=== PATIENT | female | born 1995 | race Caucasian/White ===

== ENCOUNTER 2017-06-25 22:40 | Inpatient (IN) | payer MEDICAID ==
[~2017-06-25] VITALS: Ht 149.9 cm; Wt 60.8 kg
[2017-06-25 22:53] VITALS: BP 118/64; PULSE 65
[2017-06-25 22:55] VITALS: Ht 149.9 cm; Wt 60.8 kg
[2017-06-25] MEDS ORDERED: PREN1TAB79 PO (22:56)
[2017-06-25] MEDS ORDERED: IRON1TAB78 PO (22:56)
[2017-06-26] MEDS ORDERED: LACTATED RINGER'S 1,000 ML IV SCH (01:26)
[2017-06-26] MEDS ORDERED: CARBOPROST 250 MCG INJ IM PRN ×2 (01:30→05:00)
[2017-06-26] MEDS ORDERED: IBUPROFEN 600 MG TAB PO PRN ×2 (01:30→03:30)
[2017-06-26] MEDS ORDERED: LIDOCAINE 1% (MPF) 30 ML INJ INJ PRN (01:30)
[2017-06-26] MEDS ORDERED: MISOPROSTOL 200 MCG TAB PR PRN ×2 (01:30→05:00)
[2017-06-26] MEDS ORDERED: OXYTOCIN 30 UNITS/LR 500 ML IV PRN ×2 (01:30→05:00)
[2017-06-26] MEDS ORDERED: METHYLERGONOVINE 0.2 MG INJ IM PRN ×2 (01:30→05:00)
[2017-06-26] MEDS ORDERED: BUTORPHANOL 2 MG INJ IV PRN (01:30)
[2017-06-26] MEDS ORDERED: OXYCODONE/ACETAMINOPHEN (5/325) TAB PO PRN (03:30)
[2017-06-26] MEDS ORDERED: OXYTOCIN 30 UNITS/LR 500 ML IV SCH ×3 (03:30→04:57)
[2017-06-26 04:08] LABS: ABNORMAL IP MESSAGE 1; BASOPHILS % 0.2 % (0.0-2.0); HEMOGLOBIN 12.3 g/dl (12.0-16.0); LYMPHOCYTES # 1.1 10^3/ul (0.8-2.9); LYMPHOCYTES % 8.4 % (15.0-51.0); MEAN CORPUSCULAR HGB CONC 34.2 g/dl (32.0-37.0); MEAN PLATELET VOLUME 13.5 fl (7.4-10.4); MONOCYTE # 0.4 10^3/ul (0.3-0.9); MONOCYTES % 2.8 % (0.0-11.0); NEUTROPHIL # 11.3 10^3/ul (1.6-7.5); NEUTROPHILS % 88.1 % (39.0-77.0); PLATELET COUNT 191 10^3/UL (140-415); RED BLOOD COUNT 4.39 10^6/ul (4.20-5.40); WHITE BLOOD COUNT 12.8 10^3/ul (4.8-10.8)
[2017-06-26 04:10] LABS: INR 0.88; PT RATIO 0.9
[2017-06-26 04:11] LABS: PARTIAL THROMBOPLASTIN TIME 28.9 Sec (25.0-35.0); POSITIVE DIFF @See below
[2017-06-26] MEDS ORDERED: LACTATED RINGER'S 1,000 ML IV* SCH (04:57)
[2017-06-26] MEDS ORDERED: HYDROCODONE/APAP (5/325) TAB PO PRN (05:00)
[2017-06-26] MEDS ORDERED: BENZOCAINE 20% 56 ML SPRAY TOP PRN (05:00)
[2017-06-26] MEDS ORDERED: WITCH HAZEL/GLYCERIN PAD PR PRN (05:00)
[2017-06-26] MEDS ORDERED: LANOLIN 7 GM TUBE TOP PRN (05:00)
--- NOTE | 2017-06-26 05:01 | LDN ---
Date/Time of Note Date/Time of Note DATE: 06/26/17 TIME: 04:59 Delivery Summary of a viable baby boy weighing 3295 grams or 7# 4 oz, 19' long, and with Apgars of 9/9. Weeks of Gestation 39w 5d Placenta Delivered: Spontaneously Meconium: none Episiotomy: No Perineal laceration: 2 Laceration repair: Second degree perineal laceration repaired with 2-0 chromic. Anesthesia type: Local Estimated blood loss: 200 Sponge & Needle done & correct: Yes All needle counts correct: Yes Any foreign bodies felt in the: No (vagina) Problems: Delivery Information Sex Sex: male Apgars 1 Minute: 9 5 Minute: 9 Suctioning Nose & mouth suctioned at andrew: Yes Delee suction performed: No Umbilical Cord Umbilical cord with: 3 Vessels Cord presentations: no nuchal cord Cord Blood was obtained: Yes Mother & Baby Disposition Disposition Mom & Baby to Maternity; Good: Yes Baby to NICU: No SHANDRA PEREYRA MD Jun 26, 2017 05:01
--- NOTE | 2017-06-26 05:04 | HP ---
Date/Time of Note Date/Time of Note DATE: 06/26/17 TIME: 05:01 OB - History Hx of Present Free Text/Dictation 22 y.o. G1 with an IUP at 39w 5d came in active labor at 4 cm and rapidly progressed to complete. Estimated Due Date: Jun 28, 2017 : 1 Para: 0 Care: Good Care Ultrasounds: Normal mid trimester US Obstetrical Complications: None Medical Complications: None Past Family/Social History * Past Medical, Surgical, Family and Obstetric Histories reviewed from chart. Blood Type: O+ Rubella: immune RPR/VDRL: Negative GBS Status: Negative HBsAG: Negative OB Admission Exam Vital Signs Vital Signs Vital Signs Date Time Temp Pulse Resp B/P Pulse Ox O2 Delivery O2 Flow Rate FiO2 06/25/17 22:53 97.9 65 118/64 Room Air Physical Exam HEENT: WNL Heart: Rhythm Normal Lungs: Clear Abdomen: WNL Extremities: Normal Reflexes: Normal Cervical Dilatation: 4cm Effacement: 100% Station: -2 Membranes: Intact Amniotic Fluid: Clear Heart Rate: 130's Accelerations: Accelerations Present Decelerations: No Decelerations Varibility: Moderate Contractions on Admission: < 5 Minutes Apart Last 72 hours Lab Results CBC & BMP 06/26/17 02:25 OB Assessment/Plan Reason for admission: active labor Plan: Expectant Management SHANDRA PEREYRA MD Jun 26, 2017 05:04
[2017-06-26] MEDS ORDERED: OXYCODONE/ACETAMINOPHEN (5/325) TAB ONE (05:08)
--- NOTE | 2017-06-26 05:12 | TRIAGE ---
OB Triage Datetime Report Generated by CPN: 06/26/2017 05:12 Datetime: 06/26/2017 04:54 Stage of : Recovery Temperature Route: Oral Pain Assessment Pain Scale: 0 Pain Presence: None/Denies Pain Type: N/A Datetime: 06/26/2017 04:09 Membrane Status: Ruptured Membranes Rupture Method: Artificial Amniotic Fluid Color: Clear Amniotic Fluid Amount: Large Amniotic Fluid Odor: Normal Datetime: 06/26/2017 04:03 Vaginal Exam Dilatation (cms): 10.0 Effacement (%): 100 Station: 0 Exam By: KAMILLE Santana RN Membrane Status: Bulging Vaginal Bleeding: Normal Show Presentation 'A': Cephalic Datetime: 06/26/2017 03:35 Vaginal Exam Dilatation (cms): 9.0 Effacement (%): 100 Station: -1 Exam By: KAMILLE Santana RN Membrane Status: Bulging Vaginal Bleeding: Normal Show Cervix, Consistency: Soft Cervix, Position: Anterior Presentation 'A': Cephalic Datetime: 06/26/2017 03:16 Vaginal Exam Dilatation (cms): 7.0 Effacement (%): 90 Station: -2 Exam By: KAMILLE Santana RN Membrane Status: Bulging Vaginal Bleeding: Normal Show Cervix, Consistency: Soft Cervix, Position: Midposition Presentation 'A': Cephalic Datetime: 06/26/2017 03:03 Quality: Moderate (Annotations: upon palpation) Resting Tone [place]: Relaxed Datetime: 06/26/2017 03:00 Labor Evaluation Frequency: 1-5 Monitor Mode: External Duration (sec)2399: 50-100 Pattern: Normal: <= 5 Contractions in 10 Minutes Heart Rate FHR Baseline Rate: 150 Monitor Mode: External US Variability: Moderate 6-25 bpm Accelerations: 10X10 Decelerations: Early; Variable Category: Category II Datetime: 06/26/2017 02:42 Quality: Moderate (Annotations: upon palpation) Datetime: 06/26/2017 02:30 Labor Evaluation Frequency: 0.5-5 Monitor Mode: External Duration (sec)2399: 50-120 Pattern: Normal: <= 5 Contractions in 10 Minutes Heart Rate FHR Baseline Rate: 150 Monitor Mode: External US Variability: Moderate 6-25 bpm Accelerations: 15X15 Decelerations: Early; Variable Category: Category II Datetime: 06/26/2017 02:21 Stage of : Labor Assessment Type: Admission Assessment Vaginal Bleeding: None Maternal Assessment Level of Consciousness: Fully Conscious DTR's/Clonus: DTRs 2+; No Clonus Headache: Denies Blurred Vision: No Respiratory Effort: Unlabored; Regular Rhythm; Equal Expansion Breath Sounds, Left: Clear and Equal Breath Sounds, Right: Clear and Equal Nausea/Vomiting: Denies RUQ Epigastric Pain: Denies Lower Extremities Edema: None Degree: None Upper Extremities Edema: None Degree: None Facial Edema: None Temperature Route: Oral Fall Risk Assessment History of Falling: (0) No Secondary Diagnosis: (0) No Ambulatory Aid: (0) Bedrest/Nurse Assist IV Therapy: (0) No Gait: (0) Normal/Bedrest/Immobile Mental Status: (0) Oriented to Own Ability Fall Score: 0 Fall Risk Score Definition: No Risk: No action required Pain Assessment Pain Scale: 6 Pain Presence: Intermittent Pain Type: Contraction Pain Location: Abdomen Datetime: 06/26/2017 02:00 Time of Arrival: 06/26/2017 02:00 EGA: 39.5 Arrived By: Stretcher; Transfer Arrived From: OB Triage Monitor Mode: External Quality: Moderate (Annotations: upon palpation) Resting Tone [place]: Relaxed Monitor Mode: External US Datetime: 06/26/2017 01:20 Vaginal Exam Dilatation (cms): 3.5 Effacement (%): 80 Station: -2 Exam By: C ARABELLA Membrane Status: Bulging Datetime: 06/26/2017 00:30 Stage of : OB Triage Labor Evaluation Frequency: 2-3 Monitor Mode: External Quality: Moderate Pattern: Normal: <= 5 Contractions in 10 Minutes Resting Tone [place]: Relaxed Heart Rate FHR Baseline Rate: 160 Monitor Mode: External US FHR Baseline Changes: No Baseline Change Variability: Moderate 6-25 bpm Accelerations: 15X15 Decelerations: None Category: Category I Datetime: 06/25/2017 23:20 Stage of : OB Triage Datetime: 06/25/2017 23:05 Vaginal Exam Dilatation (cms): 2.5 Effacement (%): 80 Station: -2 Exam By: Margy BELL Cervix, Consistency: Soft Cervix, Position: Midposition Presentation 'A': Cephalic Datetime: 06/25/2017 23:00 Stage of : OB Triage Maternal Assessment Level of Consciousness: Fully Conscious DTR's/Clonus: DTRs 2+; No Clonus Headache: Denies Blurred Vision: No Respiratory Effort: Unlabored; Regular Rhythm; Equal Expansion Breath Sounds, Left: Clear and Equal Breath Sounds, Right: Clear and Equal Nausea/Vomiting: Denies RUQ Epigastric Pain: Denies Lower Extremities Edema: None Degree: None Upper Extremities Edema: None Degree: None Facial Edema: None Temperature Route: Oral Fall Risk Assessment History of Falling: (0) No Secondary Diagnosis: (0) No Ambulatory Aid: (0) Bedrest/Nurse Assist IV Therapy: (0) No Gait: (0) Normal/Bedrest/Immobile Mental Status: (0) Oriented to Own Ability Fall Score: 0 Fall Risk Score Definition: No Risk: No action required Pain Assessment Pain Scale: 5 Pain Presence: Intermittent Pain Type: Contraction Pain Location: Abdomen; Back Datetime: 06/25/2017 22:59 Membranes Ruptured Date/Time: 06/26/2017 04:09 Datetime: 06/25/2017 22:58 Time of Arrival: 06/25/2017 22:36 EGA: 39.4 Arrived By: Wheelchair Arrived From: Home Chief Complaint: CONTRACTIONS SINCE 1500 Movement: Present Contractions: Regular Time Contractions Began: 06/25/2017 15:00 Contractions: Q3 MINUTES Rupture of Membranes: Denies Vaginal Discharge: Denies Abdominal Trauma: Not Applicable Patient Complaints: Contractions Time Provider Notified: 06/26/2017 00:25 Provider Notified: Dr Santacruz Initial Plan: EFM, CALL OB Datetime: 06/25/2017 22:48 Contraction Comments: APPLIED Comments: APPLIED
[2017-06-26] MEDS ORDERED: OXYCODONE/ACETAMINOPHEN (5/325) TAB PO ONE (05:30)
[2017-06-26 06:30] VITALS: BP 110/61; PULSE 61; RESP 20
[2017-06-26 08:45] VITALS: BP 100/51; PULSE 68; RESP 16
[2017-06-26 12:55] VITALS: BP 105/65; PULSE 73; RESP 16
[2017-06-26] MEDS: IBUPROFEN 600 MG TAB PO SCH ×2 (13:19→18:28)
[2017-06-26 15:30] VITALS: BP 114/63; PULSE 73; RESP 16
[2017-06-26 20:55] VITALS: BP 113/57; PULSE 63; RESP 18
[2017-06-27 00:15] VITALS: BP 118/58; PULSE 62; RESP 18
[2017-06-27] MEDS: IBUPROFEN 600 MG TAB PO SCH ×5 (00:28→23:57)
[2017-06-27 03:30] VITALS: BP 113/56; PULSE 66; RESP 18
[2017-06-27 08:00] VITALS: BP 109/69; PULSE 75
[2017-06-27 10:53] LABS: BASOPHIL # 0.1 10^3/ul (0.0-0.1); BASOPHILS % 0.4 % (0.0-2.0); EOSINOPHILS # 0.1 10^3/ul (0.0-0.5); EOSINOPHILS % 0.4 % (0.0-7.0); HEMATOCRIT 31.7 % (37.0-47.0); HEMOGLOBIN 10.6 g/dl (12.0-16.0); LYMPHOCYTES # 1.8 10^3/ul (0.8-2.9); LYMPHOCYTES % 12.4 % (15.0-51.0); MEAN CORPUSCULAR HEMOGLOBIN 28.3 pg (29.0-33.0); MEAN CORPUSCULAR HGB CONC 33.4 g/dl (32.0-37.0); MEAN CORPUSCULAR VOLUME 84.5 fl (82.0-101.0); MEAN PLATELET VOLUME 12.8 fl (7.4-10.4); MONOCYTE # 0.7 10^3/ul (0.3-0.9); NEUTROPHIL # 12.1 10^3/ul (1.6-7.5); NEUTROPHILS % 81.3 % (39.0-77.0); PLATELET COUNT 211 10^3/UL (140-415); RED BLOOD COUNT 3.75 10^6/ul (4.20-5.40); RED CELL DISTRIBUTION WIDTH 15.9 % (11.5-14.5); WHITE BLOOD COUNT 14.9 10^3/ul (4.8-10.8)
--- NOTE | 2017-06-27 11:53 | QN ---
Documentation Comment Post normal vaginal delivery day 1 Afebrile vital signs are stable Abdomen soft, uterus firm, lochia normal extremity normal. MAGDI GAGE MD Jun 27, 2017 11:53
[2017-06-27] MEDS ORDERED: GUAIFENESIN/DM 5ML CUP PO PRN (12:00)
[2017-06-27 16:00] VITALS: BP 98/53; PULSE 81; RESP 18
[2017-06-27 20:50] VITALS: BP 110/57; PULSE 62; RESP 18
[2017-06-27] MEDS ORDERED: INFLUENZA VIRUS VACCINE 0.5 ML SYG IM* ONE (21:00)
[2017-06-28 04:30] VITALS: BP 94/53; PULSE 73; RESP 18
[2017-06-28] MEDS: IBUPROFEN 600 MG TAB PO SCH ×2 (05:49→11:53)
[2017-06-28 08:15] VITALS: BP 96/62; PULSE 63; RESP 16
[2017-06-28] MEDS ORDERED: DIPHTH/TET/ACEL PERTUSS (ADULT) 0.5 ML VIAL IM* ONE (09:00)
--- NOTE | 2017-06-28 11:43 | PD.PPDC ---
RECRUITER MANAGER Discharge Instruction Condition Patient Condition: Good Diet Diet: Resume Regular Diet Activity/Restrictions Activity: Normal Activity May Shower Restrictions: No Exercising No Lifting No Driving No Sexual Activity Nothing in the Vagina No [place] No Tampons, douche Follow-up Follow-up with Physician: 2, Week/Weeks Provider Information: instruction given recommended to make appointment to be seen at the clinic in 2 weeks. Return to clinic for BUILD AND RELEASE MANAGER Instructions: Fever greater than 101 OB Instructions: Breast Tenderness MAGDI GAGE MD Jun 28, 2017 11:43
--- NOTE | 2017-06-28 11:45 | DS ---
Date/Time of Note Date/Time of Note DATE: 06/28/17 TIME: 11:44 Discharge Summary Admission/Discharge Info Admit Date/Time Jun 26, 2017 at 01:20 Discharge Date/Time June 28, 2017 at 11:40 AM Discharge Diagnosis day 2 Patient Condition: Good Procedures Normal vaginal delivery Hx of Present Illness Term in labor Hospital Course Satisfactory uneventful Home Meds Reported Medications Iron,Carbonyl/Vit C/Vit B12/Fa (IRON 100 PLUS TABLET) 1 Each Tablet, 1 EACH PO, TAB 06/25/17 Vit W-Ca,Fe,FA(<1 mg) ( Vitamins) 1 Each Tablet, 1 EACH PO, TAB 06/25/17 Follow-up Plan instruction given recommended to make appointment to be seen at the clinic in 2 weeks Primary Care Provider Care Physician No Primary Time spent on discharge: < 30 minutes MAGDI GAGE MD Jun 28, 2017 11:45
== END 2017-06-28 13:10 | disposition home or self-care (01) | DRG 775 ==
LOC: OBT 22:40 → L-D 22:43 → OBT 06-26 01:20 → L-D 06-26 01:20 → PP1 06-26 06:27
PROVIDERS: ADMIT Obstetrics & Gynecology; ATTEND Obstetrics & Gynecology
PROC: 10E0XZZ Delivery of Products of Conception, External Approach (ICD-10-PCS; principal; 2017-06-26)
PROC: 0KQM0ZZ Repair Perineum Muscle, Open Approach (ICD-10-PCS; 2017-06-26)
DX: O70.1 Second degree perineal laceration during delivery (principal); Z37.0 Single live birth; Z3A.39 39 weeks gestation of pregnancy
CPT/HCPCS: 85025; 85610; 85730; 86592; 86900; 86901; 87340; 90686; 90715; G0463; J0595; J2590; J7120

== ENCOUNTER 2018-12-28 08:31 | Inpatient (IN) | payer MEDICAID ==
[~2018-12-28] VITALS: Ht 152.4 cm; Wt 54.6 kg
[~2018-12-28 08:31] MED LIST: IRON1TAB78 PO; PREN1TAB79 PO
[2018-12-28 08:49] VITALS: Ht 152.4 cm; Wt 54.6 kg
--- NOTE | 2018-12-28 08:55 | TRIAGE ---
OB Triage Datetime Report Generated by CPN: 12/28/2018 08:54 Datetime: 12/28/2018 08:35 Assessment Type: Triage Maternal Assessment Level of Consciousness: Keenly Alert, Responsive DTR's/Clonus: DTRs 2+; No Clonus Headache: Denies Blurred Vision: No Respiratory Effort: Unlabored; Regular Rhythm; Equal Expansion Breath Sounds, Left: Clear and Equal Breath Sounds, Right: Clear and Equal Nausea/Vomiting: Denies RUQ Epigastric Pain: Denies Lower Extremities Edema: None Degree: None Upper Extremities Edema: None Degree: None Facial Edema: None Fall Risk Assessment History of Falling: (0) No Secondary Diagnosis: (0) No Ambulatory Aid: (0) Bedrest/Nurse Assist IV Therapy: (0) No Gait: (0) Normal/Bedrest/Immobile Mental Status: (0) Oriented to Own Ability Fall Score: 0 Fall Risk Score Definition: No Risk: No action required Datetime: 12/28/2018 08:26 Time of Arrival: 12/28/2018 08:26 Arrived By: Wheelchair Arrived From: Home Chief Complaint: PT CAME IN C/O UC'S Movement: Present Contractions: Regular Time Contractions Began: 12/28/2018 05:00 Contractions: 5-6 Rupture of Membranes: Denies Vaginal Discharge: Denies Recent Sexual Intercouse: Denies Abdominal Trauma: Not Applicable Patient Complaints: Contractions Additional Patient Complaints: NONE Time Provider Notified: 12/28/2018 08:47 Provider Notified: PRINCESS Initial Plan: MONITOR AND VE
[2018-12-28] MEDS ORDERED: LACTATED RINGER'S 1,000 ML IV SCH (09:34)
[2018-12-28] MEDS ORDERED: MISOPROSTOL 200 MCG TAB PR PRN ×2 (10:00→13:00)
[2018-12-28] MEDS ORDERED: CARBOPROST 250 MCG INJ IM PRN ×2 (10:00→13:00)
[2018-12-28] MEDS ORDERED: OXYTOCIN 30 UNITS/LR 500 ML IV SCH ×3 (10:00→12:59)
[2018-12-28] MEDS ORDERED: LIDOCAINE 1% (MPF) 30 ML INJ INJ PRN (10:00)
[2018-12-28] MEDS ORDERED: OXYTOCIN 30 UNITS/LR 500 ML IV PRN ×2 (10:00→13:00)
[2018-12-28] MEDS ORDERED: MINERAL OIL 30ML CUP PO ONE (10:00)
[2018-12-28] MEDS ORDERED: BUTORPHANOL 2 MG INJ IV PRN (10:00)
[2018-12-28] MEDS ORDERED: METHYLERGONOVINE 0.2 MG INJ IM PRN ×2 (10:00→13:00)
[2018-12-28] MEDS ORDERED: AMPICILLIN 2 GM/NS (PMX) 100 ML IV ONE (10:00)
--- NOTE | 2018-12-28 11:26 | HP ---
Date/Time of Note Date/Time of Note DATE: 12/28/18 TIME: 11:25 OB - History Hx of Present Free Text/Dictation 36+ : 2 Para: 1 Care: Good Care Ultrasounds: Normal mid trimester US Obstetrical Complications: None Medical Complications: None Past Family/Social History * Past Medical, Surgical, Family and Obstetric Histories reviewed from chart. OB Admission Exam Physical Exam Abdomen: WNL Extremities: Normal Cervical Dilatation: 10cm Effacement: 100% Station: +2 Membranes: Ruptured Heart Rate: 140's Accelerations: Accelerations Present Decelerations: No Decelerations Varibility: Moderate Contractions on Admission: < 5 Minutes Apart Last 72 hours Lab Results CBC & BMP 12/28/18 09:10 OB Assessment/Plan Reason for admission: observation Other Assessment: PMH deneis PSH Denies Allergy NKDA Plan: Expectant Management PASCALE PETERSEN M.D. Dec 28, 2018 11:26
--- NOTE | 2018-12-28 11:27 | LDN ---
Date/Time of Note Date/Time of Note DATE: 12/28/18 TIME: 11:26 Delivery Summary Weeks of Gestation 36+ Placenta Delivered: Spontaneously Meconium: none Episiotomy: No Perineal laceration: 1 Anesthesia type: None Estimated blood loss: 200 Sponge & Needle done & correct: Yes All needle counts correct: Yes Any foreign bodies felt in the: No Mother & Baby Disposition Disposition Mom & Baby to Maternity; Good: Yes Mom transferred to: Other PASCALE PETERSEN M.D. Dec 28, 2018 11:27
[2018-12-28 12:45] VITALS: BP 119/72; PULSE 51; RESP 16
[2018-12-28] MEDS ORDERED: WITCH HAZEL/GLYCERIN PAD PR PRN (13:00)
[2018-12-28] MEDS ORDERED: OXYCODONE/ASPIRIN (4.88/325) TAB PO PRN (13:00)
[2018-12-28] MEDS ORDERED: ZOLPIDEM 5 MG TAB PO PRN (13:00)
[2018-12-28] MEDS ORDERED: AMPICILLIN 1 GM/NS (PMX) 50 ML IV SCH (13:00)
[2018-12-28] MEDS ORDERED: SENNA/DOCUSATE NA (8.6MG/50MG) TAB PO PRN (13:00)
[2018-12-28] MEDS ORDERED: NACL 0.9% 3 ML SYG IV SCH (13:00)
[2018-12-28] MEDS ORDERED: BENZOCAINE 20% 56 ML SPRAY TOP PRN (13:00)
[2018-12-28] MEDS: LANOLIN HPA 1 PKT TOP PRN (13:23)
[2018-12-28] MEDS: IBUPROFEN 600 MG TAB PO SCH ×2 (13:23→18:00)
[2018-12-28 15:56] VITALS: BP 99/59; PULSE 52; RESP 18
[2018-12-28 20:00] VITALS: BP 104/69; PULSE 54; RESP 18
[2018-12-28] MEDS: SENNA/DOCUSATE NA (8.6MG/50MG) TAB PO SCH (21:00)
[2018-12-29] VITALS: BP 104/66; PULSE 56; RESP 18
[2018-12-29] MEDS: IBUPROFEN 600 MG TAB PO SCH ×5 (01:30→23:51)
[2018-12-29 04:00] VITALS: BP 102/64; PULSE 54; RESP 18
[2018-12-29 08:00] VITALS: BP 115/68; PULSE 56; RESP 18
[2018-12-29] MEDS: SENNA/DOCUSATE NA (8.6MG/50MG) TAB PO SCH ×2 (10:21→21:01)
--- NOTE | 2018-12-29 15:19 | PN ---
Date/Time of Note Date/Time of Note DATE: 12/29/18 TIME: 15:17 OB Subjective Subjective Subjective PPD# 1 Patient is doing well. She denies nausea, vomiting, shortness of breath, chest pain, headache. She has been ambulating without difficulty, tolerating regular diet. Pain is well controlled on current medications OB Objective Objective Objective VS - Last 72 Hours, by Label Date Temp Pulse Resp B/P (MAP) Pulse Ox O2 O2 Flow FiO2 Time Delivery Rate 12/29/18 98.0 56 18 115/68 Room Air 08:00 (84) 12/29/18 98.2 54 18 102/64 Room Air 04:00 (77) 12/29/18 98.2 56 18 104/66 Room Air 00:00 (79) 12/28/18 97.8 54 18 104/69 Room Air 20:00 (81) 12/28/18 98.7 52 18 99/59 (72) Room Air 15:56 12/28/18 99.0 51 16 119/72 Room Air 12:45 (88) General: AAO X 3, comfortable, NAD, appropriate mood and affect. ABD: +BS. Soft, non-tender. Uterus 2 cm below umbilicus Flank: No CVA tenderness (B/L) LE: Mild edema. No clubbing, cyanosis, thigh or calf tenderness (B/L). Homans 'sign is negative Laboratory Tests Test 12/28/18 09:10 12/29/18 07:13 12/29/18 08:30 White Blood Count 11.5 10^3/ul 9.7 10^3/ul Red Blood Count 4.58 10^6/ul 3.87 10^6/ul Hemoglobin 11.5 g/dl 9.8 g/dl Hematocrit 36.9 % 30.8 % Mean Corpuscular Volume 80.6 fl 79.6 fl Mean Corpuscular 25.1 pg 25.3 pg Hemoglobin Mean Corpuscular 31.2 g/dl 31.8 g/dl Hemoglobin Concent Red Cell Distribution 17.5 % 17.1 % Width Platelet Count 233 10^3/UL 198 10^3/UL Mean Platelet Volume 12.6 fl 12.4 fl Immature Granulocytes % 0.400 % 0.500 % Neutrophils % 80.9 % 74.3 % Lymphocytes % 13.4 % 19.7 % Monocytes % 4.8 % 4.5 % Eosinophils % 0.2 % 0.6 % Basophils % 0.3 % 0.4 % Nucleated Red Blood Cells 0.0 /100WBC 0.0 /100WBC % Immature Granulocytes # 0.050 10^3/ul 0.050 10^3/ul Neutrophils # 9.3 10^3/ul 7.2 10^3/ul Lymphocytes # 1.5 10^3/ul 1.9 10^3/ul Monocytes # 0.6 10^3/ul 0.4 10^3/ul Eosinophils # 0.0 10^3/ul 0.1 10^3/ul Basophils # 0.0 10^3/ul 0.0 10^3/ul Nucleated Red Blood Cells 0.0 10^3/ul 0.0 10^3/ul # Prothrombin Time 11.8 Sec Prothrombin Time Ratio 0.9 INR International 0.86 Normalized Ratio Activated 28.3 Sec Partial Thromboplast Time Rapid Plasma Reagin NONREACTIVE Hepatitis B Surface NEGATIVE Antigen HIV (1&2) Antibody NEGATIVE Lab Scanned Report REFER[facility] LAB [id number] OB Assessment/Plan Other plan: 23 years old -0-0-2 s/p normal vaginal delivery at 37 weeks and 4 days. PPD#1 - AF, VSS - Contraception methods with R/B/A/FR discussed - Continue care - Discharge home tomorrow - Rx and instruction given - Follow up in 2 and 6 weeks at clinic AGUILA SÁNCHEZ Dec 29, 2018 15:19
--- NOTE | 2018-12-29 15:20 | DS ---
Date/Time of Note Date/Time of Note DATE: 12/29/18 TIME: 15:19 Obstetrical Discharge Record Final Diagnosis Final Diagnosis: Term delivered Other Final Diagnosis 23 years old -0-0-2 s/p normal vaginal delivery at 37 weeks and 4 days. PPD#1. course was unremarkable. She is ablating and tolerating regular diet. She is voiding without difficulty. Pain is controlled on current medication - AF, VSS - Contraception methods with R/B/A/FR discussed - Continue care - Discharge home tomorrow - Rx and instruction given - Follow up in 2 and 6 weeks at clinic Vaginal Delivery Obstetrical Delivery: Spontaneous Condition on Discharge Physical Assessment Voiding: Yes Bowel Movement: Yes Breast: Soft, non-tender Fundus: Firm Calf Tenderness: No Patient Condition: Stable AGUILA SÁNCHEZ Dec 29, 2018 15:20
[2018-12-29 15:31] VITALS: BP 116/53; PULSE 55; RESP 16
[2018-12-29 20:30] VITALS: BP 100/56; PULSE 57; RESP 18
[2018-12-30 04:00] VITALS: BP 94/59; PULSE 54; RESP 18
[2018-12-30] MEDS: IBUPROFEN 600 MG TAB PO SCH ×2 (05:48→11:57)
[2018-12-30 08:00] VITALS: BP 103/53; PULSE 56; RESP 18
[2018-12-30] MEDS ORDERED: DIPHTH/TET/ACEL PERTUSS (ADULT) 0.5 ML VIAL IM* ONE (09:00)
[2018-12-30] MEDS: SENNA/DOCUSATE NA (8.6MG/50MG) TAB PO SCH (09:05)
[2018-12-30] MEDS: LANOLIN HPA 1 PKT TOP PRN (11:59)
[2018-12-30 15:40] VITALS: BP 98/64; PULSE 55; RESP 14
[2018-12-30 16:41] VITALS: BP 98/64; PULSE 55; RESP 14
--- NOTE | 2018-12-31 18:06 | DELSUM ---
Delivery Summary A-C Datetime Report Generated by CPN: 12/31/2018 18:06 DELIVERY PERSONNEL Director Of Corporate Strategy: Rommel, Alisson MATERNAL INFORMATION Delivery Anesthesia: None Medications in Delivery: LR W/30 UNITS PITOCIN Delivery QBL (ml): 200 Placenta Cultured: No Maternal Complications: None LABOR SUMMARY EDC: 01/14/2019 00:00 No. Babies in Womb: 1 Attempted: No Labor Anesthesia: None LABOR INFORMATION Reason for Induction: Not Applicable Onset of Labor: 12/28/2018 05:00 Complete Dilatation: 12/28/2018 11:11 Oxytocin: N/A Group B Beta Strep: Negative Antibiotics # of Doses: 1 Antibiotics Time of Last Dose: 12/28/2018 09:50 Steroids Given: None Reason Steroids Not Administered: Not Applicable MEMBRANES Membranes Rupture Method: Spontaneous Rupture of Membranes: 12/28/2018 11:11 Length of Rupture (hr): 0.05 Amniotic Fluid Color: Clear Amniotic Fluid Amount: Moderate Amniotic Fluid Odor: None STAGES OF LABOR Stage 1 hr: 6 Stage 1 min: 11 Stage 2 hr: 0 Stage 2 min: 3 Stage 3 hr: 0 Stage 3 min: 3 Total Time in Labor hr: 6 Total Time in Labor min: 17 VAGINAL DELIVERY Episiotomy: None Laceration Extension: First Degree Laceration Type: Perineal Laceration Repair: Yes Initial Vag Sponge Count: 10 Final Vag Sponge Count: 10 Initial Vag Sharps Count: 1+1 Final Vag Sharps Count: 2 Sponge Count Correct: Yes; Vaginal Sweep Performed Sharps Count Correct: Yes BABY A INFORMATION Delivery Date/Time: 12/28/2018 11:14 Method of Delivery: Vaginal Born in Route : No : N/A Forceps: N/A Vacuum Extraction: N/A Shoulder Dystocia : N/A SHOULDER DYSTOCIA BABY A Infant Delivery Date/Time: 12/28/2018 11:14 PRESENTATION/POSITION BABY A Presentation: Cephalic Cephalic Presentation: Vertex Breech Presentation: N/A PLACENTA INFORMATION BABY A Placenta Delivery Time : 12/28/2018 11:17 Placenta Method of Delivery: Spontaneous Placenta Status: Delivered SCORES BABY A Heart Rate 1 min: >100 bpm Resp Effort 1 min: Good Cry Reflex Irritability 1 min: Cough/Sneeze/Pulls Away Muscle Tone 1 min: Active Motion Color 1 min: Body [place], Extremit Blue Resuscitation Effort 1 min: Tactile Stimulation SCORE 1 MIN: 9 Heart Rate 5 min: >100 bpm Resp Effort 5 min: Good Cry Reflex Irritability 5 min: Cough/Sneeze/Pulls Away Muscle Tone 5 min: Active Motion Color 5 min: Body [place], Extremit Blue Resuscitation Effort 5 min: Tactile Stimulation SCORE 5 MIN: 9 INFANT INFORMATION BABY A Gestational Age at Delivery: 37.4 Gestational Status: Early Term- 37- 38.6 Weeks Infant Outcome : Liveborn Infant Condition : Stable Sex: Male IDENTIFICATION/MEDS BABY A ID Band Number: [id number] ID Band Location: Right Leg; Left Arm Sensor Applied: Yes Sensor Number: [id number] Sensor Location : Cord Clamp Vitamin K Given : Not Given Erythromycin Given: Not Given WEIGHT/LENGTH BABY A Infant Birthweight (gm): 3005 Weight (lb): 6 Infant Weight (oz): 10 Length (in): 19.00 Length (cm): 48.26 CORD INFORMATION BABY A No. Cord Vessels: 3 Nuchal Cord : N/A Cord Blood Taken: Yes Banking/Donate Info: NO Suction: Mouth; Nose ASSESSMENT BABY A Infant Complications: None Physical Findings at Delivery: Within Normal Limits Infant Respirations: Appears Normal Fertilizer Loader/ALS Called : No Infant Care By: RN Transferred To: Remains with Mother
== END 2018-12-30 17:55 | disposition home or self-care (01) | DRG 807 ==
LOC: OBT 08:31 → L-D 08:31 → OBT 08:47 → PP1 12:32
PROVIDERS: ADMIT Obstetrics & Gynecology; ATTEND Obstetrics & Gynecology
PROC: 10E0XZZ Delivery of Products of Conception, External Approach (ICD-10-PCS; principal; 2018-12-28)
PROC: 0HQ9XZZ Repair Perineum Skin, External Approach (ICD-10-PCS; 2018-12-28)
PROC: 4A1HXCZ Monitoring of Products of Conception, Cardiac Rate, External Approach (ICD-10-PCS; 2018-12-28)
DX: O60.14X0 Preterm labor third trimester with preterm delivery third trimester, not applicable or unspecified (principal); Z37.0 Single live birth; O70.0 First degree perineal laceration during delivery; Z3A.36 36 weeks gestation of pregnancy
CPT/HCPCS: 85025; 85610; 85730; 86592; 86703; 86762; 86850; 86900; 86901; 87340; G0463; J0290; J2590; J7120